=== PATIENT | male | born 1985 | race Caucasian/White ===

== ENCOUNTER 2019-01-08 07:54 | Emergency (ER) | payer OTHER ==
[2019-01-08] MEDS ORDERED: ONDANSETRON 4 MG/2 ML VIAL IVP ONE (08:21)
[2019-01-08] MEDS ORDERED: NS 1,000 ML IV ONE (08:22)
[2019-01-08] MEDS ORDERED: HALOPERIDOL LACT 5 MG/ML INJ IVP ONE ×2 (08:22→10:29)
--- NOTE | 2019-01-08 08:24 | EDPHY ---
HPI/HX/ROS/PE/MDM Narrative: CHIEF COMPLAINT: Vomiting HPI: The patient is a 33-year-old male with a history of cyclic vomiting and prior cholecystectomy. He has complained of severe nausea and vomiting over the past 24-48 hours. History is primarily obtained from significant other who is at bedside. She states that the patient undergo similar episodes approximately every 3 months with frequent hospitalization at the NH for same. She states that this episode is exactly similar to all of his other previous episodes. Patient complains of diffuse abdominal pain and sweating as well as vomiting. He does use marijuana frequently and drinks alcohol socially. REVIEW OF SYSTEMS: Aside from elements discussed in the HPI, a comprehensive 10-point review of systems was reviewed and is negative. PMH: History of cholecystectomy. History of cyclic vomiting that has been present since the patient was [place]. SOCIAL HISTORY: Endorses marijuana and occasional alcohol use. PHYSICAL EXAM: General:Patient is alert. He is retching and somewhat diaphoretic. ENT:Eyes are normal to inspection. ENT inspection normal. Neck: Normal inspection. Full range of motion. Respiratory:No respiratory distress. Breath sounds normal bilaterally. Cardiovascular: Regular rate and rhythm. Strong peripheral pulses. Normal cap refill. Abdomen:The abdomen is nontender to palpation. There are no peritoneal signs. There are normal bowel sounds. Back: Normal to inspection. No tenderness to palpation. Skin: Normal color. No rash. Warm and dry. Extremities: Normal appearance. Full range of motion. Neuro: Oriented x3. Normal motor function. Normal sensory function. ED Course: The patient was treated with 2 doses of IV Haldol, IV fluids and antiemetics. On re-evaluation at 12:30 p.m., the patient feels much better and his significant other would like to take him home. She asked me to order a specific test that is apparently the antibody to a specific compound found in the anthrax vaccine. I explained to her that this is not of test we can order from the emergency department and she was satisfied with this. She also asked me to avoid diagnosing this as cyclic vomiting syndrome as she does not think this is accurate. Note, the patient seems to really have every sign and symptom suggestive of this diagnosis. We discussed strict return precautions as well as referral to Gastroenterology. I think given the patient's history of frequent presentations similar to this as well as negative workup here that this is very unlikely to represent something like bowel obstruction or appendicitis. The patient is comfortable with plan to be discharged home and follow up. - Data Points Laboratory Results: Laboratory Results 01/08/19 08:15 01/08/19 08:15 01/08/19 01/08/19 08:15 08:15 WBC 14.20 10^3/uL H 10^3/uL (3.80-9.50) RBC 5.26 10^6/uL 10^6/uL (4.40-6.38) Hgb 16.9 g/dL g/dL (13.7-17.5) Hct 46.8 % % (40.0-51.0) MCV 89.0 fL fL (81.5-99.8) MCH 32.1 pg pg (27.9-34.1) MCHC 36.1 g/dL g/dL (32.4-36.7) RDW 12.8 % % (11.5-15.2) Plt Count 264 10^3/uL 10^3/uL (150-400) MPV 9.6 fL fL (8.7-11.7) Neut % (Auto) 82.1 % H % (39.3-74.2) Lymph % (Auto) 9.1 % L % (15.0-45.0) Ramsey % (Auto) 7.5 % % (4.5-13.0) Eos % (Auto) 0.5 % L % (0.6-7.6) Baso % (Auto) 0.4 % % (0.3-1.7) Nucleat RBC Rel Count 0.0 % % (0.0-0.2) Absolute Neuts (auto) 11.66 10^3/uL H 10^3/uL (1.70-6.50) Absolute Lymphs (auto) 1.29 10^3/uL 10^3/uL (1.00-3.00) Absolute Monos (auto) 1.06 10^3/uL H 10^3/uL (0.30-0.80) Absolute Eos (auto) 0.07 10^3/uL 10^3/uL (0.03-0.40) Absolute Basos (auto) 0.06 10^3/uL 10^3/uL (0.02-0.10) Absolute Nucleated RBC 0.00 10^3/uL 10^3/uL (0-0.01) Immature Gran % 0.4 % % (0.0-1.1) Immature Gran # 0.06 10^3/uL 10^3/uL (0.00-0.10) Sodium 137 mEq/L mEq/L (135-145) Potassium 3.7 mEq/L mEq/L (3.5-5.2) Chloride 101 mEq/L mEq/L (97-110) Carbon Dioxide 24 mEq/l mEq/l (22-31) Anion Gap 12 mEq/L mEq/L (6-14) BUN 21 mg/dL mg/dL (7-23) Creatinine 0.8 mg/dL mg/dL (0.7-1.3) Estimated GFR > 60 Glucose 111 mg/dL H mg/dL (70-100) Calcium 10.0 mg/dL mg/dL (8.5-10.4) Lipase 93 IU/L IU/L (23-300) Medications Given: Discontinued Medications Diphenhydramine HCl (Benadryl Injection) 25 mg IVP EDNOW ONE Stop: 01/08/19 10:30 Last Admin: 01/08/19 10:35 Dose: 25 mg Haloperidol Lactate (Haldol Injection) 2.5 mg IVP EDNOW ONE Stop: 01/08/19 08:23 Last Admin: 01/08/19 08:27 Dose: 2.5 mg Haloperidol Lactate (Haldol Injection) 2.5 mg IVP EDNOW ONE Stop: 01/08/19 10:30 Last Admin: 01/08/19 10:35 Dose: 2.5 mg Sodium Chloride (Ns) 1,000 mls @ 0 mls/hr IV EDNOW ONE; Wide Open PRN Reason: Protocol Stop: 01/08/19 08:23 Last Admin: 01/08/19 08:27 Dose: 1,000 mls Ondansetron HCl (Zofran) 4 mg IVP EDNOW ONE Stop: 01/08/19 08:22 Last Admin: 01/08/19 08:27 Dose: 4 mg General Time Seen by Provider: 01/08/19 08:20 Initial Vital Signs: Initial Vital Signs Temperature (C) 36.4 C 01/08/19 07:57 Heart Rate 76 01/08/19 07:57 Respiratory Rate 17 01/08/19 07:57 Blood Pressure 109/79 01/08/19 07:57 O2 Sat (%) 98 01/08/19 07:57 O2 Delivery Mode Room Air Allergies/Adverse Reactions: No Known Allergies Allergy (Unverified 01/08/19 07:57) Home Medications: Medication Instructions Recorded Bile Salts 01/08/19 Ondansetron Odt [Zofran Odt] 4 mg PO Q4PRN PRN #10 tab 01/08/19 Departure - Departure Disposition: Home, Routine, Self-Care Clinical Impression: Vomiting Condition: Good Instructions: Acute Nausea and Vomiting (ED) Additional Instructions: Recommend to follow up with her primary care physician and/or lifestyle coordinator within the next week. Return to the Emergency Department for continued vomiting, blood in vomit, diarrhea, fever, severe abdominal pain or other concerns. Referrals: NONE *PRIMARY CARE P,. [Primary Care Provider] - As per Instructions Jose Blackwell MD [Medical Doctor] - As per Instructions Prescriptions: Ondansetron Odt [Zofran Odt] 4 mg PO Q4PRN PRN #10 tab PRN Reason: Nausea
[2019-01-08 08:32] LABS: PLATELET COUNT 264 10^3/uL (150-400)
[2019-01-08] MEDS ORDERED: HALOPERIDOL LACT 5 MG/ML INJ ONE (10:32)
[2019-01-08 13:02] VITALS: BP 118/64
== END 2019-01-08 13:00 | disposition home or self-care (01) ==
DX: R11.10 Vomiting, unspecified (principal)
CPT/HCPCS: 96374; J1200; J1630; J2405